=== PATIENT | female | born 1970 | race Caucasian/White ===

== ENCOUNTER 2018-06-29 09:16 | Outpatient (CLI) | payer OTHER ==
--- NOTE | 2018-06-29 11:22 | BD ---
BONE DENSITOMETRY: INDICATION: A 47-year-old female for postmenopausal osteoporosis screening. FINDINGS: Lumbar Spine: BMD (g/cm2) L1 1.133 T-Score: 1.3 L2 1.175 T-Score: 1.3 L3 1.173 T-Score: 0.8 L4 1.193 T-Score: 1.2 L1-L4 1.169 T-Score: 1.1 Femoral Neck: 0.889 T-Score: 0.4 Total Femur: 0.974 T-Score: 0.3 Impression: Bone mineral density of the lumbar spine and femoral neck are within normal range. POS: [facility]
--- NOTE | 2018-07-30 13:19 | MMO ---
Bilateral MAMMO Bilat Screen [facility]. CLINICAL HISTORY: Patient is 47 years old and is seen for screening. The patient has no family history of breast cancer. The patient has no personal history of cancer. VIEWS: The views performed were: bilateral craniocaudal with tomosynthesis and bilateral mediolateral oblique with tomosynthesis. FILMS COMPARED: The present examination has been compared to prior imaging studies performed at [facility] on 02/21/2013 and 04/14/2016. MAMMOGRAM FINDINGS: The breasts are heterogeneously dense, which could obscure a lesion on mammography. There are no suspicious masses, calcifications or areas of architectural distortion. IMPRESSION: THERE IS NO MAMMOGRAPHIC EVIDENCE OF MALIGNANCY. A ROUTINE FOLLOW-UP MAMMOGRAM IN 1 YEAR IS RECOMMENDED. THE RESULTS OF THIS EXAM WERE SENT TO THE PATIENT. ACR BI-RADS Category 1 - Negative MAMMOGRAPHY NOTE: 1. A negative mammogram report should not delay a biopsy if a dominant of clinically suspicious mass is present. 2. Approximately 10% to 15% of breast cancers are not detected by mammography. 3. Adenosis and dense breasts may obscure an underlying neoplasm.
== END 2018-06-29 09:17 | disposition home or self-care (01) ==
LOC: BICMAMMO 09:16
PROVIDERS: ATTEND Student in an Organized Health Care Education/Training Program
DX: Z12.31 Encounter for screening mammogram for malignant neoplasm of breast (principal); Z13.820 Encounter for screening for osteoporosis
CPT/HCPCS: 77063; 77067; 77080

== ENCOUNTER 2018-10-03 11:03 | Outpatient (CLI) | payer OTHER ==
--- NOTE | 2018-10-03 12:20 | ULT ---
TRANSABDOMINAL AND TRANSVAGINAL PELVIC ULTRASOUND WITH GRAYSCALE COLOR-FLOW AND SPECTRAL DOPPLER: HISTORY: Postmenopausal bleeding FINDINGS: The uterus measures 10.2 x 4.2 x 5.8 cm and is diffusely heterogeneous. No definite focal mass or end ometrial fluid is seen. The endometrium measures 1 cm in thickness. There is a small nabothian cyst in cervix. The right ovary measures 3.4 x 2.5 x 2.2 cm in the left ovary measures 3.5 x 2.8 x 3.8 cm. There is a 2.4 cm cyst in the left ovary. Flow is demonstrated to both ovaries. No free fluid is seen. IMPRESSION: 1. Endometrial thickness is 1 cm. 2. 2.4 cm cyst in the left ovary.
== END 2018-10-03 11:04 | disposition home or self-care (01) ==
LOC: SCSULT 11:03
DX: N95.0 Postmenopausal bleeding (principal); R93.89 Abnormal findings on diagnostic imaging of other specified body structures; N83.202 Unspecified ovarian cyst, left side
CPT/HCPCS: 76856

== ENCOUNTER 2020-02-24 10:42 | Outpatient (CLI) | payer BC ==
--- NOTE | 2020-02-24 11:06 | MMO ---
Bilateral MAMMO Bilat Screen [facility]. CLINICAL HISTORY: Patient is 49 years old and is seen for screening. The patient has no family history of breast cancer. The patient has no personal history of cancer. VIEWS: The views performed were: bilateral craniocaudal with tomosynthesis and bilateral mediolateral oblique with tomosynthesis. FILMS COMPARED: The present examination has been compared to prior imaging studies performed at [facility] on 06/29/2018, and at [facility] on 02/21/2013 and 04/14/2016. This study has been interpreted with the assistance of computer-aided detection. MAMMOGRAM FINDINGS: There are scattered fibroglandular densities. There are no suspicious masses, suspicious calcifications, or new areas of architectural distortion. IMPRESSION: THERE IS NO MAMMOGRAPHIC EVIDENCE OF MALIGNANCY. A ROUTINE FOLLOW-UP MAMMOGRAM IN 1 YEAR IS RECOMMENDED. THE RESULTS OF THIS EXAM WERE SENT TO THE PATIENT. ACR BI-RADS Category 1 - Negative MAMMOGRAPHY NOTE: 1. A negative mammogram report should not delay a biopsy if a dominant of clinically suspicious mass is present. 2. Approximately 10% to 15% of breast cancers are not detected by mammography. 3. Adenosis and dense breasts may obscure an underlying neoplasm. Reported by: EVELYN MAXWELL MD Electonically Signed: [id number]
== END 2020-02-24 10:43 | disposition home or self-care (01) ==
LOC: BICMAMMO 10:42
PROVIDERS: ATTEND Family Medicine
DX: Z12.31 Encounter for screening mammogram for malignant neoplasm of breast (principal)
CPT/HCPCS: 77063; 77067